=== PATIENT | male | born 1990 | race Two or more races ===

== ENCOUNTER 2023-05-26 09:53 | Emergency (ER) | payer OTHER ==
[~2023-05-26] VITALS: Ht 172.7 cm; Wt 87.1 kg
[~2023-05-26 09:53] MED LIST: NALOXONE HCL 1MG/ML 2ML SYRINGE ONE
[2023-05-26 10:38] VITALS: BP 145/80; PULSE 82; RESP 18; TEMP 97.6; O2SAT 98
== END 2023-05-26 12:49 | disposition home or self-care (01) ==
LOC: ER 09:53
DX: S63.501A Unspecified sprain of right wrist, initial encounter (principal); W18.39XA Other fall on same level, initial encounter; Y93.89 Activity, other specified; Y92.89 Other specified places as the place of occurrence of the external cause; Y99.8 Other external cause status
CPT/HCPCS: 73110